=== PATIENT | female | born 1960 | race Two or more races ===

== ENCOUNTER 2019-11-01 08:58 | Emergency (ER) | payer SELFPAY ==
--- NOTE | 2019-11-01 09:11 | ER Document Report ---
ED Medical Screen (RME) - General Chief Complaint: Flank Pain Stated Complaint: FLANK PAIN Mode of Arrival: Wheelchair Information source: Patient Notes: 58-year-old female with history of diet controlled diabetes presents with right upper quad abdominal pain for the past week. Reports that she has had the pain come and go for the past year. She has been told that she has gallbladder issues. She reports pain has worsened this past week. Denies fever vomiting diarrhea. Denies pain with void. Also complains of low back pain joint pain hand pain. Reports joints in her left hand are swollen denies history of RA. Patient reports she just moved here from [place] approximately 30 days ago. Denies fever. Denies COVID exposure. I have greeted and performed a rapid initial assessment of this patient. A comprehensive ED assessment and evaluation of the patient, analysis of test results and completion of the medical decision making process will be conducted by additional ED providers. - Related Data Allergies/Adverse Reactions: No Known Allergies Allergy (Unverified 11/01/19 09:07) Past Medical History - General Information source: Patient - Social History Cigarette use (# per day): Yes
--- NOTE | 2019-11-01 09:25 | ER Document Report ---
ED GI/ - General Chief Complaint: Abdominal Pain Stated Complaint: FLANK PAIN Time Seen by Provider: 11/01/19 09:22 Mode of Arrival: Wheelchair Notes: CHIEF COMPLAINT: Right upper quadrant pain HPI: 58-year-old female presenting for evaluation of right upper quadrant pain that is become more persistent with nausea. Patient states over the last year she has had increasing episodes of discomfort after eating, normally 30 to 60 minutes after eating with nausea. Patient had gone to an emergency department outside of this facility and had imaging studies and was told that she had some enlargement of her gallbladder but she never followed up. Over the last 2 weeks has been having more frequent episodes of discomfort with nausea. No fever. Patient states she is a type II diabetic does not take medication for that but manages it with diet. No chest pain no shortness of breath ROS: See HPI - all other systems were reviewed and are otherwise negative Constitutional: no fever Eyes: no drainage, no blurred vision ENT: no runny nose, no sore throat Cardiovascular: no chest pain Resp: no SOB, no cough GI: no vomiting, no diarrhea, + abdominal pain, positive nausea : no dysuria Integumentary: no rash Allergy: no hives Musculoskeletal: no extremity pain or swelling Neurological: no numbness/tingling, no weakness MEDICATIONS: I agree with the patient medications as charted by the RN. ALLERGIES: I agree with the allergies as charted by the RN. PAST MEDICAL HISTORY/PAST SURGICAL HISTORY: Reviewed and agree as charted by RN. SOCIAL HISTORY: Reviewed and agree as charted by RN. FAMILY HISTORY: No significant familial comorbid conditions directly related to patient complaint EXAM: Reviewed vital signs as charted by RN. CONSTITUTIONAL: Alert and oriented and responds appropriately to questions. Well-appearing; well-nourished HEAD: Normocephalic; atraumatic EYES: PERRL; Conjunctivae clear, sclerae non-icteric ENT: normal nose; no rhinorrhea; moist mucous membranes; pharynx without lesions noted, no uvula edema or deviation, no tonsillar hypertrophy, phonation normal NECK: Supple without meningismus; non-tender; no cervical lymphadenopathy, no masses CARD: RRR; no murmurs, no clicks, no rubs, no gallops; symmetric distal pulses RESP: Normal chest excursion without splinting or tachypnea; breath sounds clear and equal bilaterally; no wheezes, no rhonchi, no rales, pulse oximetry ABD/GI: Normal bowel sounds; non-distended; soft, mild tenderness to the right upper quadrant on palpation, no rebound, no guarding; no palpable organomegaly or masses. BACK: The back appears normal and is non-tender to palpation, there is no CVA tenderness EXT: Normal ROM in all joints; non-tender to palpation; no cyanosis, no effusions, no edema SKIN: Normal color for age and race; warm; dry; good turgor; no acute lesions noted NEURO: Moves all extremities equally; Motor and sensory function intact PSYCH: The patient's mood and manner are appropriate. Grooming and personal hygiene are appropriate. MDM: 58-year-old female with intermittent right upper quadrant pain with nausea over the last year persistently more uncomfortable over the last 2 weeks. Has mild reproducible tenderness, low suspicion for ACS, more likely to be cholelithiasis, will obtain screening labs, patient has been to ultrasound - Related Data Allergies/Adverse Reactions: No Known Allergies Allergy (Unverified 11/01/19 09:07) Past Medical History - General Information source: Patient - Social History Smoking Status: Current Every Day Smoker Cigarette use (# per day): Yes Family History: Reviewed & Not Pertinent Patient has homicidal ideation: No Physical Exam - Vital signs Vitals: Temp Pulse Resp BP 98.8 F 89 18 126/85 H 11/01/19 09:08 11/01/19 09:08 11/01/19 09:08 11/01/19 09:08 Course - Re-evaluation Re-evalutation: 11/01/19 12:26 Imaging study does not show evidence of cholecystitis or cholelithiasis. Lab work does not show acute emergent abnormalities. Patient may still have gastritis, gastric ulcer, low suspicion for ACS. Will place patient on Protonix, Zofran, follow-up gastroenterology. Patient also requesting a referral to medical PCP as she does not have one for follow-up - Vital Signs Vital signs: Temp Pulse Resp BP Pulse Ox 98.8 F 89 18 126/85 H 11/01/19 09:08 11/01/19 09:08 11/01/19 09:08 11/01/19 09:08 - Laboratory Result Diagrams: 11/01/19 09:49 11/01/19 09:49 Discharge - Discharge Clinical Impression: Abdominal pain, RUQ Condition: Stable Disposition: HOME, SELF-CARE Additional Instructions: Your lab work and ultrasound today did not show acute abnormalities or definitive reason for your abdominal pain. Take the medications as prescribed, follow-up with both gastroenterology and primary care for further evaluation and treatment as discussed call for appointment. Return to the emergency department for fever greater than 101 or worsening pain Prescriptions: Pantoprazole Sodium [Protonix [address] Tablet] 20 mg PO DAILY #30 tablet. Ondansetron [Zofran Odt 4 mg Tablet] 1 - 2 tab PO Q4H PRN #15 tab.rapdis PRN Reason: For Nausea/Vomiting Referrals: BANG RIOJAS MD [ACTIVE STAFF] - Follow up as needed IBRAHIMA CHRISTIANSON MD [COMMUNITY BASED STAFF] - Follow up as needed
[2019-11-01] MEDS ORDERED: MORPHINE SULFATE 10 MG/ML INJ IV ONE (09:42)
[2019-11-01] MEDS ORDERED: ONDANSETRON HCL INJ/PF 4 MG/2 ML SDV IV ONE (09:42)
[2019-11-01 10:04] LABS: ABSOLUTE EOSINOPHILS # (AUTO) 0.1 10^3/uL (0.0-0.6); ABSOLUTE LYMPHOCYTES (AUTO) 1.5 10^3/uL (0.5-4.7); ABSOLUTE MONOCYTES (AUTO) 0.6 10^3/uL (0.1-1.4); ABSOLUTE NEUT (AUTO) 4.8 10^3/uL (1.7-8.2); BASOPHILS % (AUTO) 0.4 % (0-2); HEMATOCRIT 41.2 % (36.0-47.0); HEMOGLOBIN 14.1 g/dL (12.0-15.5); LYMPHOCYTES % (AUTO) 21.3 % (13-45); MEAN CORPUSCULAR HEMOGLOBIN 29.9 pg (27.0-33.4); MEAN CORPUSCULAR HGB CONC 34.2 g/dL (32.0-36.0); MEAN CORPUSCULAR VOLUME 87 fl (80-97); MONOCYTES % (AUTO) 8.4 % (3-13); PLATELET COUNT 202 10^3/uL (150-450); RED BLOOD COUNT 4.72 10^6/uL (3.72-5.28); RED CELL DISTRIBUTION WIDTH 13.1 % (11.5-14.0); SEGMENTED NEUTROPHILS % (AUTO) 68.9 % (42-78); TOTAL CELLS COUNTED % (AUTO) 100 %; WHITE BLOOD COUNT 6.9 10^3/uL (4.0-10.5)
--- NOTE | 2019-11-01 10:10 | RADIOLOGY REPORT (SQ) ---
EXAM DESCRIPTION: U/S ABDOMEN LIMITED W/O DOP IMAGES COMPLETED DATE/TIME: 11/01/2019 9:31 am REASON FOR STUDY: ruq pain COMPARISON: None. TECHNIQUE: Dynamic and static grayscale images acquired of the abdomen and recorded on PACS. Additio nal selected color Doppler and spectral images recorded. LIMITATIONS: None. FINDINGS: PANCREAS: No masses. Visualized pancreatic duct normal caliber. LIVER: No masses. Echotexture normal. LIVER VASCULATURE: Normal directional flow of the main portal vein and hepatic veins. GALLBLADDER: No stones. Normal wall thickness. No pericholecystic fluid. ULTRASOUND-DETECTED NEGRO'S SIGN: Negative. INTRAHEPATIC DUCTS AND COMMON DUCT: CBD and intrahepatic ducts normal caliber. No filling defects. AORTA: No aneurysm. RIGHT KIDNEY: Normal size. Normal echogenicity. No solid or suspicious masses. No hydronephrosis. No calcifications. PERITONEAL AND RIGHT PLEURAL SPACE: No ascites or effusions. OTHER: No other significant findings. IMPRESSION: NORMAL RIGHT UPPER QUADRANT ULTRASOUND. TECHNICAL DOCUMENTATION: JOB ID: [id number] 2010 [employer]- All Rights Reserved Reading location - IP/workstation name: [email or web address]
[2019-11-01 10:25] LABS: ALBUMIN 3.9 g/dL (3.5-5.0); ALKALINE PHOSPHATASE 76 U/L (38-126); ANION GAP 6 (5-19); ASPARTATE AMINO TRANSFERASE 16 U/L (14-36); BILIRUBIN,TOTAL 0.5 mg/dL (0.2-1.3); BLOOD UREA NITROGEN 13 mg/dL (7-20); CALCIUM 9.5 mg/dL (8.4-10.2); CARBON DIOXIDE 25 mmol/L (22-30); CHLORIDE 107 mmol/L (98-107); GLUCOSE 98 mg/dL (75-110); POTASSIUM 4.4 mmol/L (3.6-5.0); TOTAL PROTEIN 6.6 g/dL (6.3-8.2)
[2019-11-01 11:56] LABS: APPEARANCE,URINE CLEAR; BILIRUBIN,URINE NEGATIVE (NEGATIVE); COLOR,URINE STRAW; GLUCOSE, URINE NEGATIVE (NEGATIVE); KETONES,URINE NEGATIVE (NEGATIVE); LEUKOCYTE ESTERASE,URINE NEGATIVE (NEGATIVE); NITRITE,URINE NEGATIVE (NEGATIVE); PROTEIN,URINE NEGATIVE (NEGATIVE); URINE SPECIFIC GRAVITY 1.006; UROBILINOGEN,URINE NEGATIVE mg/dL (<2.0)
[2019-11-01 12:47] VITALS: BP 120/75
== END 2019-11-01 12:45 | disposition home or self-care (01) ==
LOC: ER 08:58
DX: R10.11 Right upper quadrant pain (principal); R11.0 Nausea; F17.210 Nicotine dependence, cigarettes, uncomplicated
CPT/HCPCS: 99284; 96374; 96375; 36415; 83690; 85025; 80053; 81001; 76705; J2270; J2405